=== PATIENT | male | born 1970 ===

== ENCOUNTER 2021-12-06 06:00 | Day surgery (SDC) | payer OTHER | END 2021-12-07 12:50 | disposition home or self-care (01) | LOC: AMB-ENDOS 06:00 | PROVIDERS: ATTEND Internal Medicine Gastroenterology | DX: K55.20 Angiodysplasia of colon without hemorrhage (principal); Z88.8 Allergy status to other drugs, medicaments and biological substances; Z88.0 Allergy status to penicillin; K59.09 Other constipation ==